=== PATIENT | male | born 1955 | race Caucasian/White ===

== ENCOUNTER 2019-12-26 01:16 | Inpatient (IN) | payer MEDICAID ==
[~2019-12-26] VITALS: Ht 175.3 cm; Wt 104.3 kg
[~2019-12-26 01:16] MED LIST: LISI40TA11 PO; SIMV-13 PO; TAMS0.4C36 PO
[2019-12-26 02:27] LABS: Alanine Aminotransferase 30 U/L (16-61); Albumin 3.7 g/dL (3.4-5.0); Anion Gap 4 (5-15); Aspartate Aminotransferase 18 U/L (15-37); BUN/Creatinine Ratio 17.8; Blood Urea Nitrogen 19 mg/dL (7-18); Calcium 8.3 mg/dL (8.5-10.1); Carbon Dioxide 29 mmol/L (21-32); Chloride 105 mmol/L (98-107); GFR African American 90 mL/min; GFR Non-African American 74 mL/min; Glucose 129 mg/dL (74-106); Potassium 3.9 mmol/L (3.5-5.1); Sodium 138 mmol/L (136-145)
[2019-12-26 02:32] LABS: Alkaline Phosphatase 75 U/L (45-117); Total Protein 7.1 g/dL (6.4-8.2)
[2019-12-26 02:41] LABS: Basophils # (auto) 0 10 ^3/uL (0-0.2); Basophils % (auto) 0.4 % (0.0-2.0); Eosinophils # (auto) 0.1 10 ^3/uL (0-0.8); Eosinophils % (auto) 2.6 % (0.0-7.0); Hematocrit 42.2 % (41.0-53.0); Hemoglobin 14.5 g/dL (13.5-17.5); Lymphocytes # (auto) 1.4 10 ^3/uL (0.4-5.4); Lymphocytes % (auto) 25.2 % (10.0-50.0); Mean Corpuscular Hemoglobin 30.6 pg (28.0-32.0); Mean Corpuscular Hgb Conc. 34.4 g/dL (32.0-36.0); Mean Corpuscular Volume 89.1 fL (80.0-100.0); Monocytes # (auto) 0.4 10 ^3/uL (0-1.3); Monocytes % (auto) 6.2 % (0.0-12.0); Neutrophils # (auto) 3.7 10 ^3/uL (1.6-8.6); Neutrophils % (auto) 65.6 % (37.0-80.0); Nucleated Red Blood Cells % 0.1 %; Platelet Count (auto) 174 10^3/uL (140-450); Red Blood Cells 4.74 10^6/uL (4.5-5.90); Red Cell Distribution Width 13.9 % (11.8-14.3); White Blood Cell 5.7 10^3/uL (4.4-10.8)
[2019-12-26] MEDS ORDERED: ONDANSETRON HCL 4 MG/2 ML VIAL IV PRN (04:00)
[2019-12-26] MEDS: InsuLIN REG 1unit/0.01ml Soln (100units/ml) SC SCH ×3 (04:00→12:45)
[2019-12-26] MEDS ORDERED: ACETAMINOPHEN 325 MG TAB PO PRN (04:00)
[2019-12-26] MEDS ORDERED: DOCUSATE SOD 100 MG CAP PO PRN (04:00)
[2019-12-26] MEDS ORDERED: MORPHINE SULF INJ 2 MG/ML SYRINGE 1ML IV PRN (04:00)
[2019-12-26] MEDS ORDERED: HYDROcodone-ACET 5/325MG TAB PO PRN (04:00)
[2019-12-26] MEDS ORDERED: DEXTROSE (50%) 50ML SYRG IV PRN (04:00)
[2019-12-26] MEDS: ACCU-CHEK COMFORT CURVE STRIP VI SCH ×3 (04:16→12:45)
[2019-12-26 07:18] LABS: Basophils # (auto) 0 10 ^3/uL (0-0.2); Basophils % (auto) 0.4 % (0.0-2.0); Eosinophils # (auto) 0.2 10 ^3/uL (0-0.8); Eosinophils % (auto) 3.7 % (0.0-7.0); Hematocrit 40.9 % (41.0-53.0); Hemoglobin 14.2 g/dL (13.5-17.5); Lymphocytes # (auto) 1.5 10 ^3/uL (0.4-5.4); Lymphocytes % (auto) 26.1 % (10.0-50.0); Mean Corpuscular Hemoglobin 30.7 pg (28.0-32.0); Mean Corpuscular Hgb Conc. 34.6 g/dL (32.0-36.0); Mean Corpuscular Volume 88.5 fL (80.0-100.0); Monocytes # (auto) 0.5 10 ^3/uL (0-1.3); Monocytes % (auto) 8.6 % (0.0-12.0); Neutrophils # (auto) 3.6 10 ^3/uL (1.6-8.6); Neutrophils % (auto) 61.2 % (37.0-80.0); Nucleated Red Blood Cells % 0.1 %; Platelet Count (auto) 165 10^3/uL (140-450); Red Blood Cells 4.62 10^6/uL (4.5-5.90); Red Cell Distribution Width 13.6 % (11.8-14.3); White Blood Cell 5.9 10^3/uL (4.4-10.8)
[2019-12-26 07:32] LABS: Calcium 8.4 mg/dL (8.5-10.1); Potassium 3.7 mmol/L (3.5-5.1)
[2019-12-26 07:37] LABS: BUN/Creatinine Ratio 18.9
[2019-12-26] MEDS ORDERED: ASPI-498 PO (10:40)
[2019-12-26] MEDS ORDERED: FINA5TAB4 PO (10:42)
[2019-12-26 16:07] VITALS: BP 108/58
[2019-12-26 18:02] LABS: Alcohol, Urine < 3.0 mg/dL (0-10); Amphetamine Screen, Urine POSITIVE (NEGATIVE); Barbiturate Scree,Urine NEGATIVE (NEGATIVE); Benzodiazephine Screen, Urine NEGATIVE (NEGATIVE); Cannabinoid Screen, Urine NEGATIVE (NEGATIVE); Cocaine Screen, Urine NEGATIVE (NEGATIVE); Opiate Scree,Urine NEGATIVE (NEGATIVE); Phencyclidine Screen, Urine NEGATIVE (NEGATIVE); Urine Bacteria NONE SEEN /hpf (None Seen); Urine Blood Negative /uL (Negative); Urine Specific Gravity 1.019 (1.001-1.035); Urine WBC 4 /hpf (0 - 3)
[2019-12-26] MEDS ORDERED: CIPR500T4 PO (18:28)
== END 2019-12-26 16:45 | disposition home health service (06) | DRG 463 ==
LOC: ER 01:18 → OVERFLOW 01:19
PROVIDERS: ADMIT Hospitalist; ATTEND Internal Medicine
DX: N39.0 Urinary tract infection, site not specified (principal); R73.9 Hyperglycemia, unspecified; R53.1 Weakness; R55 Syncope and collapse; E78.5 Hyperlipidemia, unspecified; N40.0 Benign prostatic hyperplasia without lower urinary tract symptoms; I11.0 Hypertensive heart disease with heart failure; W18.30XA Fall on same level, unspecified, initial encounter; I95.9 Hypotension, unspecified; Y93.89 Activity, other specified; Z86.73 Personal history of transient ischemic attack (TIA), and cerebral infarction without residual deficits; Z90.49 Acquired absence of other specified parts of digestive tract; Y92.89 Other specified places as the place of occurrence of the external cause; Y99.8 Other external cause status; I50.30 Unspecified diastolic (congestive) heart failure
CPT/HCPCS: 36415; 71045; 80048; 80053; 80061; 80307; 81001; 82962; 83036; 83605; 83880; 84484; 85025; 87040; 87086; 93005; G0378

== ENCOUNTER 2021-12-19 06:25 | Day surgery (SDC) | payer OTHER, MEDICAID ==
[~2021-12-19] VITALS: Ht 175.3 cm; Wt 104.3 kg
[~2021-12-19 06:25] MED LIST changes: +ASPI-498 PO; +LISI20TA28 PO; -LISI40TA11 PO
[2021-12-19] MEDS ORDERED: CIPROFLOXACIN 400MG/200ML 200 ML IV ONE (06:58)
[2021-12-19] MEDS ORDERED: fentaNYL CITRATE 100 MCG/2 ML VL ONE (07:33)
[2021-12-19] MEDS ORDERED: MIDAZOLAM HCL 2MG/2ML 2ml VIAL (1mg/ml) ONE (07:34)
[2021-12-19] MEDS ORDERED: PROPOFOL 10 MG/ML 20 ML IV ONE (07:53)
[2021-12-19] MEDS ORDERED: DexAMETHasone SOD PHOS 10MG/1ML VIAL INJ ONE (07:53)
[2021-12-19] MEDS ORDERED: MIDAZOLAM HCL 2MG/2ML 2ml VIAL (1mg/ml) IV PRN (08:15)
[2021-12-19] MEDS ORDERED: LABETALOL HCL 5 MG/ML 4ML SYRINGE IV PRN (08:15)
[2021-12-19] MEDS ORDERED: ONDANSETRON HCL 4 MG/2 ML VIAL IV PRN (08:15)
[2021-12-19] MEDS ORDERED: METOCLOPRAMIDE HCL 5MG/ml INJ 2ml VIAL IV PRN (08:15)
[2021-12-19] MEDS ORDERED: ePHEDrine SULFATE 50 MG/ML AMP IV PRN (08:15)
[2021-12-19] MEDS ORDERED: MORPHINE SULFATE 4 MG/ML SYR/VIAL IV PRN (08:15)
[2021-12-19 09:04] VITALS: BP 110/68
== END 2021-12-19 09:20 | disposition home or self-care (01) ==
LOC: SUR 06:25
PROVIDERS: ATTEND Urology
DX: R97.21 Rising PSA following treatment for malignant neoplasm of prostate (principal); C61 Malignant neoplasm of prostate; I11.0 Hypertensive heart disease with heart failure; I50.9 Heart failure, unspecified; I25.10 Atherosclerotic heart disease of native coronary artery without angina pectoris; Z86.73 Personal history of transient ischemic attack (TIA), and cerebral infarction without residual deficits; Z90.49 Acquired absence of other specified parts of digestive tract; Z20.822 Contact with and (suspected) exposure to COVID-19; Z82.49 Family history of ischemic heart disease and other diseases of the circulatory system
CPT/HCPCS: 55706; 88305; J0744; J1100; J2250; J2704; J3010; U0003; 76872

== ENCOUNTER 2022-08-04 12:35 | Emergency (ER) | payer OTHER, MEDICAID ==
[~2022-08-04] VITALS: Ht 175.3 cm; Wt 108.0 kg
[2022-08-04 15:25] VITALS: BP 152/78
[2022-08-04] MEDS ORDERED: IBUP800T26 PO (15:58)
[2022-08-04] MEDS ORDERED: HYDR-4902 PO (15:58)
[2022-08-04] MEDS ORDERED: AMOX-277 PO (15:58)
== END 2022-08-04 16:02 | disposition home or self-care (01) ==
LOC: ER 12:35
DX: S61.511A Laceration without foreign body of right wrist, initial encounter (principal); S61.531A Puncture wound without foreign body of right wrist, initial encounter; I11.0 Hypertensive heart disease with heart failure; I50.9 Heart failure, unspecified; Z79.82 Long term (current) use of aspirin; Z79.899 Other long term (current) drug therapy; Z86.73 Personal history of transient ischemic attack (TIA), and cerebral infarction without residual deficits; Z90.49 Acquired absence of other specified parts of digestive tract; W54.0XXA Bitten by dog, initial encounter; Y93.89 Activity, other specified; Y92.89 Other specified places as the place of occurrence of the external cause; Y99.8 Other external cause status
CPT/HCPCS: 12002

== ENCOUNTER 2022-08-06 01:41 | Emergency (ER) | payer OTHER, MEDICAID ==
[~2022-08-06] VITALS: Ht 175.3 cm; Wt 109.2 kg
[~2022-08-06 01:41] MED LIST changes: +AMOX-277 PO; +HYDR-4902 PO; +IBUP800T26 PO
[2022-08-06] MEDS ORDERED: cefTRIAXone 1GM/50ML D5W 50 ML IV ONE (05:00)
[2022-08-06] MEDS ORDERED: CLINDAMYCIN 900MG IV 50 ML IV ONE (05:00)
[2022-08-06] MEDS ORDERED: CLIN300C8 PO (05:54)
[2022-08-06 07:51] VITALS: BP 118/64
== END 2022-08-06 07:59 | disposition home or self-care (01) ==
LOC: ER 01:41
DX: S51.851D Open bite of right forearm, subsequent encounter (principal); I11.0 Hypertensive heart disease with heart failure; I50.9 Heart failure, unspecified; Z86.73 Personal history of transient ischemic attack (TIA), and cerebral infarction without residual deficits; W54.0XXD Bitten by dog, subsequent encounter
CPT/HCPCS: 96365; 96368; 99284; J0696; J3490

== ENCOUNTER 2022-08-22 23:40 | Emergency (ER) | payer OTHER, MEDICAID ==
[~2022-08-22] VITALS: Ht 175.3 cm; Wt 107.0 kg
[~2022-08-22 23:40] MED LIST changes: +CLIN300C8 PO
[2022-08-23 02:47] VITALS: BP 150/65
[2022-08-23] MEDS ORDERED: CLIN300C8 PO (02:48)
== END 2022-08-23 02:56 | disposition home or self-care (01) ==
LOC: ER 23:40
DX: S51.851D Open bite of right forearm, subsequent encounter (principal); I11.0 Hypertensive heart disease with heart failure; I50.9 Heart failure, unspecified; Z86.73 Personal history of transient ischemic attack (TIA), and cerebral infarction without residual deficits; W54.0XXD Bitten by dog, subsequent encounter

== ENCOUNTER 2024-12-03 00:44 | Emergency (ER) | payer OTHER, MEDICAID ==
[~2024-12-03] VITALS: Ht 175.3 cm; Wt 88.2 kg
[~2024-12-03 00:44] MED LIST changes: -AMOX-277 PO; +AMOX875T4 PO; +CLIN1CAP70 PO; -CLIN300C8 PO; +IBUP-1455 PO; -IBUP800T26 PO; -LISI20TA28 PO; +LISI20TA56 PO; -SIMV-13 PO; +SIMV40TA18 PO; -TAMS0.4C36 PO; +TAMS0.4C39 PO
--- NOTE | 2024-12-03 01:39 | ED.PDOC ---
GI ASSESSMENT HPI Comments 69 year old male with a Hx of CVA, CHF, Hyperlipidemia, HTN, Prostate Cancer, and a Pacemaker presents to the ED for the c/c of N/V/D w/ associated Bilateral Ear pain, Fever, Nasal Congestion, and Dysuria. Pt states that his symptoms started 2x days ago, and has not found any alleviating factors. Pt denies any ear discharge, Chest pain, sob, WRAY, Dizziness, Blurry Vision, or any other associated symptoms or modifiers at this time. Chief Complaint: Nausea/Vomiting Time Seen by MD: 01:35 Primary Care Provider: Zuleima Reviewed Notes: Nurses Notes, Medications, Allergies Allergies: Coded Allergies: NO KNOWN ALLERGIES (Unverified , 12/20/14) Home Meds Active Scripts Clindamycin Hcl (Clindamycin Hcl) 300 Mg Cap, 1 CAP PO TID for 7 Days, #21 CAP 0 Refills Prov:JUAN MYERS 08/23/22 Clindamycin Hcl (Clindamycin Hcl) 300 Mg Cap, 1 CAP PO TID for 7 Days, #21 CAP 0 Refills Prov:MOON DEL TORO 08/06/22 Hydrocodone-Acetaminophen (Hydrocodone Bitartrate/AC 5-325 mg) 1 Tab Tab, 1 TAB PO Q6HP PRN, #10 TAB Prov:BILLY HAAS 08/04/22 Ibuprofen Micronized (Ibuprofen) 800 Mg Tab, 800 MG PO Q8HP PRN, #30 TAB Prov:BILLY HAAS 08/04/22 Amoxicillin & Pot Clavulanate (Amoxicillin/Potassium Cla) 875 Mg Tab, 1 TAB PO BID for 10 Days, #20 TAB Prov:BILLY HAAS 08/04/22 Reported Medications Lisinopril (Lisinopril) 20 Mg Tab, 20 MG PO, TAB 12/18/21 Aspirin (ASPIRIN 81) 81 Mg Tab, 81 MG PO DAILY, TAB 12/26/19 Simvastatin (Simvastatin) 40 Mg Tab, 1 TAB PO QPM, #30 TAB 5 Refills 01/24/16 Tamsulosin Hcl (Tamsulosin Hcl) 0.4 Mg Cap, 1 CAP PO DAILY, #30 CAP 5 Refills 01/24/16 Information Source: Patient Mode of Arrival: Wheelchair Timing: Days Duration: Intermittent, Days Prehospital treatment: None Quality: Aching Vomitus: Watery Stool: Loose Severity: Moderate Recent: None Recent Hx of: None Pain Location: None Modifying Factors: Exertion, Movement Associated sign and symptoms: Nausea, Vomiting, Diarrhea, Abdominal Pain Past Medical History PAST MEDICAL HISTORY: Cancer, CHF, CVA, High Lipids, HTN Surgical History: Appendectomy, Pacemaker Family History Family History: Unknown Social History Smoker: Non-Smoker Alcohol: Denies ETOH Use Drugs: Denies Drug Use Lives In: Home All Other Systems: Reviewed and Negative (Comprehensive systems review obtained and negative except for what is stated in the HPI.) Physical Exam General Appearance: No Apparent Distress, Obese HEENT: Other (Pupils and face symmetric. Moist mucous membranes. Bilateral TMs cloudy) Neck: Full Range of Motion, Normal Inspection Respiratory: Decreased Breath Sounds, No Accessory Muscle Use, No Respiratory Distress Cardiovascular: No Edema, No JVD, Tachycardia Breast Exam: Deferred Gastrointestinal: Soft, Suprapubic, Tenderness Genitalia: Deferred Pelvic: Deferred Rectal: Deferred Extremities: Normal inspection, Normal range of motion, Non-tender Neurologic: Alert (Oriented x4), Normal Affect, Normal Mood Cerebellar Function: NOT DONE Reflexes: NOT DONE Skin: Dry, Normal Color, Warm Lymphatic: NOT DONE EKG EKG : Comments Sinus tach, rate 106, normal intervals, normal axis, normal QRS, nonspecific T change. Was a procedure done? Was a procedure done?: No GI differential Dx Differential Diagnosis: Bowel Obstruction, Constipation, Diverticular disease, Gastritis/PUD, Gastroenteritis, Urinary Obstruction, UTI, Dehydration, Drug toxicity, Electrolyte Imbalance, Viral, Kidney Stone, Other (Otitis media, otitis externa) X-Ray, Labs, Meds, VS Vital Signs Date Time Temp Pulse Resp B/P (MAP) Pulse Ox O2 Delivery O2 Flow Rate FiO2 12/03/24 05:31 98.4 113 18 121/59 (79) 93 98.4 12/03/24 05:19 113 19 121/59 12/03/24 04:23 139 18 117/66 12/03/24 04:15 100.0 139 18 117/66 (83) 93 100.0 12/03/24 04:15 Room Air* 0 21 12/03/24 00:46 98.7 124 18 144/68 94 98.7 Lab Test 12/03/24 04:36 12/03/24 03:47 12/03/24 02:00 12/03/24 01:31 Range/Units Influenza Type A Antigen Negative Negative Influenza Type B Antigen Negative Negative SARS-CoV-2 Antigen (Rapid) Negative NEGATIVE Troponin I High Sensitivity 7 4 </=54 ng/L White Blood Count 5.6 4.4-10.8 10^3/uL Red Blood Count 4.46 L 4.5-5.90 10^6/uL Hemoglobin 13.6 13.5-17.5 g/dL Hematocrit 38.1 L 41.0-53.0 % Mean Corpuscular Volume 85.5 80.0-100.0 fL Mean Corpuscular Hemoglobin 30.5 28.0-32.0 pg Mean Corpuscular Hemoglobin Concent 35.7 32.0-36.0 g/dL Red Cell Distribution Width 14.0 11.8-14.3 % Platelet Count 135 L 140-450 10^3/uL Mean Platelet Volume 9.1 6.9-10.8 fL Neutrophils (%) (Auto) 73.7 37.0-80.0 % Lymphocytes (%) (Auto) 13.4 10.0-50.0 % Monocytes (%) (Auto) 11.4 0.0-12.0 % Eosinophils (%) (Auto) 0.9 0.0-7.0 % Basophils (%) (Auto) 0.6 0.0-2.0 % Neutrophils # (Auto) 4.2 1.6-8.6 10 ^3/uL Lymphocytes # (Auto) 0.8 0.4-5.4 10 ^3/uL Monocytes # (Auto) 0.6 0-1.3 10 ^3/uL Eosinophils # (Auto) 0 0-0.8 10 ^3/uL Basophils # (Auto) 0 0-0.2 10 ^3/uL Nucleated Red Blood Cells 0.0 % Sodium Level 129 L 136-145 mmol/L Potassium Level 4.1 3.5-5.1 mmol/L Chloride Level 97 L 98-107 mmol/L Carbon Dioxide Level 23 20-31 mmol/L Anion Gap 9 5-15 Blood Urea Nitrogen 23 9-23 mg/dL Creatinine 0.99 0.700-1.30 mg/dL Glomerular Filtration Rate Calc 83 >90 mL/min BUN/Creatinine Ratio 23.2 H 10.0-20.0 Serum Glucose 143 H 74-106 mg/dL Lactic Acid Level 1.0 0.4-2.0 mmol/L Calcium Level 8.6 L 8.7-10.4 mg/dL B-Type Natriuretic Peptide 9.97 0-100 pg/mL Urine Color Yellow Yellow Urine Clarity Clear Clear Urine pH 5.5 5.0-9.0 Urine Specific [place] 1.025 1.001-1.035 Urine Protein Trace H Negative Urine Ketones Trace Negative Urine Blood Negative Negative /uL Urine Nitrite Negative Negative Urine Bilirubin Negative Negative Urine Urobilinogen 2 H Negative mg/dL Urine Leukocyte Esterase Negative Negative /uL Urine RBC 1 0 - 3 /hpf Urine Microscopic WBC 1 0-3 /HPF Urine Squamous Epithelial Cells Few <5 /hpf Urine Bacteria None seen None Seen /hpf Urine Mucus Few None Seen Urine Glucose Trace Normal mg/dL Test 12/03/24 01:04 Range/Units POC Glucose 154 H 70-106 mg/dl Current Medications Medications (Trade) Dose Ordered Sig/Manuel Route Start Time Stop Time Status Last Admin Ceftriaxone Sodium/Dextrose 50 ml @ 50 mls/hr ONCE ONCE IV 12/03/24 01:45 12/03/24 02:44 DC 12/03/24 04:23 Ondansetron HCl (Zofran) 4 mg ONCE ONCE IV 12/03/24 01:45 12/03/24 01:46 DC 12/03/24 04:23 Morphine Sulfate 4 mg ONCE ONCE IV 12/03/24 01:45 12/03/24 01:46 DC 12/03/24 04:23 Sodium Chloride 1,000 ml @ 200 mls/hr Q5H ONCE IV 12/03/24 03:45 12/03/24 08:44 12/03/24 04:23 PATIENT: DINA FAYE ACCT: [id number] UNIT: [id number] : 1955 LOC: ER ROOM / BED: / AGE / SEX: 69 / M ADM STATUS: REG ER SERVICE 0140 ORDERING PHYSICIAN: CAIO TERRELL MD PROCEDURE(s): CXRP - CHEST PORTABLE REASON: sob ORDER NUMBER(s): [id number], ACCESSION NUMBER(s): [id number] CHEST RADIOGRAPH Indication: sob Technique: Single frontal view of the chest was obtained Comparison: CHEST PORTABLE on DOS: 12/26/19 FINDINGS: Lines and Tubes: None Lungs: No focal consolidation. Linear opacities in the lower lungs most likely represent atelectasis, less likely edema. Pleura: No effusion or pneumothorax. Cardiomediastinal contours: Unremarkable Bones: No acute osseous abnormality. IMPRESSION: 1. Mild basilar atelectasis versus edema. X-Ray, Labs, Meds, VS Comment 69 year old male with a Hx of CVA, CHF, Hyperlipidemia, HTN, Prostate Cancer, and a Pacemaker presents to the ED for the c/c of N/V/D w/ associated Bilateral Ear pain, Fever, Nasal Congestion, and Dysuria Vitals remarkable for heart rate 139 Exam remarkable for tachycardia and bilateral cloudy TMs Rhythm strip independently interpreted by me: Sinus tach, rate 106, no ectopy. Chest x-ray IMPRESSION: 1. Mild basilar atelectasis versus edema. CBC unremarkable, basic metabolic panel remarkable for sodium 129, chloride 97. BNP, serial troponins, lactate and UA unremarkable. Influenza and COVID negative. Patient treated with the following in the ED: Morphine 4 mg IV, Zofran 4 mg IV, 1 L 0.9 normal saline IV, Rocephin 2 g IV On re-evaluation, heart rate has improved, however patient is still tachycardic in the low 100s. Vitals are otherwise stable. He is not in respiratory distress. Plan was to admit the patient for electrolyte correction and further evaluation of his tachycardia. Case was discussed with RODOLFO Worthy, who evaluated the patient in the ED. Patient admitted that he had smoked meth prior to coming to the ER. Deacon did not feel the patient required hospitalization, and recommended the patient be discharged. He will arrange for close outpatient follow-up. Rx cefuroxime, Zofran, ibuprofen, Tylenol Time of 1ST Reevaluation: 02:10 Reevaluation 1ST: Unchanged Patient Education/Counseling: Diagnosis, Treatment, Need For Follow Up Family Education/Counseling: No Family Present SEPSIS Sepsis Screen Date sepsis recognized/suspect: Dec 03, 2024 Time Sepsis recognized/suspect: 51 Recent Procedure: No On Antibiotic Therapy: No Respiratory Rate >20: No Heart Rate >90: Yes (HR-124) Temp<36 C (96.8 F) or >38.3 C: No SBP <90 or MAP <65 mmHG: No New Acute Mental Status Change: No Is the patient on CPAP, BIPAP,: No SEPSIS EXCLUSION NOTE: Sepsis Exclusion Note: Patient presents with SIRS criteria, but the SIRS response is attributed to [methamphetamine use ], not sepsis. Sepsis bundle is not initiated at this time, due to this reason. Further management will focus on the treatment of the above condition (s). Physician Orders Chest Portable (12/03/24 01:40) Troponin-I Hs (12/03/24 04:40) Blood Culture (12/03/24 01:40) Sodium Chloride 0.9% (12/03/24 03:45) Lactic Acid W/ Reflex Order (12/03/24 04:42) Blood Culture (12/03/24 04:42) Po Trial (12/03/24 ) Vital Signs Date Time Temp Pulse Resp B/P (MAP) Pulse Ox O2 Delivery O2 Flow Rate FiO2 12/03/24 05:31 98.4 113 18 121/59 (79) 93 98.4 12/03/24 05:19 113 19 121/59 12/03/24 04:23 139 18 117/66 12/03/24 04:15 100.0 139 18 117/66 (83) 93 100.0 12/03/24 04:15 Room Air* 0 21 12/03/24 00:46 98.7 124 18 144/68 94 98.7 Laboratory Tests Test 12/03/24 02:00 Lactic Acid Level 1.0 mmol/L (0.4-2.0) White Blood Count 5.6 10^3/uL (4.4-10.8) Medications Medications Dose Ordered Sig/Manuel Route Start Time Stop Time Status Last Admin Dose Admin Ceftriaxone Sodium/Dextrose 50 ml @ 50 mls/hr ONCE ONCE IV 12/03/24 01:45 12/03/24 02:44 DC 12/03/24 04:23 Morphine Sulfate 4 mg ONCE ONCE IV 12/03/24 01:45 12/03/24 01:46 DC 12/03/24 04:23 Ondansetron HCl 4 mg ONCE ONCE IV 12/03/24 01:45 12/03/24 01:46 DC 12/03/24 04:23 Sodium Chloride 1,000 ml @ 200 mls/hr Q5H ONCE IV 12/03/24 03:45 12/03/24 08:44 12/03/24 04:23 Departure 1 Departure Time of Disposition: 06:00 Impression: Primary Impression: Otitis media Qualified Codes: H66.90 - Otitis media, unspecified, unspecified ear Additional Impressions: Methamphetamine abuse Electrolyte imbalance Disposition: HOME / SELF CARE / HOMELESS Condition: Stable Additional Instructions: Your blood tests showed a low sodium and chloride. We have corrected this in the ER. I have prescribed antibiotics for your ear infection, pain and nausea medication. Follow-up with your primary doctor in 1-2 days. Return to ER for persistent or worsening symptoms. e-Prescriptions Ibuprofen Micronized (Ibuprofen) 800 Mg Tab 800 MG PO Q8HP PRN, #30 TAB Prn fever or pain. Take with food. Prov: CAIO TERRELL MD 12/03/24 Acetaminophen (Tylenol Extra Strength) 500 Mg Tab 1000 MG PO Q6HP PRN, #30 TAB Prn fever or pain Prov: CAIO TERRELL MD 12/03/24 Ondansetron Odt 4MG Tab (ZOFRAN PO) 4 Mg Tb 4 MG PO TID PRN, #30 TAB Prn nausea/vomiting ODT TAB-DISSOLVE IN MOUTH, THEN SWALLOW Prov: CAIO TERRELL MD 12/03/24 Cefuroxime Axetil (Cefuroxime Axetil) 500 Mg Tab 1 TAB PO BID for 10 Days, #20 TAB Prov: CAIO TERRELL MD 12/03/24 Discharged With: Relative Critical Care Note Critical Care Time?: No Stability Stability form required: No Heart Score Heart Score: Heart Score Response (Comments) Value History N/A 0 EKG N/A 0 Age N/A 0 Risk Factors N/A 0 Troponin N/A 0 Total 0 I personally scribed for CAIO TERRELL MD ([email or web address]) on 12/03/24 at 01:39. Electronically submitted by Dontae Masters ([email or web address]). I personally scribed for CAIO TERRELL [email or web address]) on 12/03/24 at 01:44. Electronically submitted by Dontae Masters ([email or web address]). I personally scribed for CAIO TERRELL MD ([email or web address]) on 12/03/24 at 02:46. Electronically submitted by Dontae Masters ([email or web address]). CAIO TERRELL MD Dec 03, 2024 01:39
[2024-12-03 02:27] LABS: Hematocrit 38.1 % (41.0-53.0); Hemoglobin 13.6 g/dL (13.5-17.5); Mean Corpuscular Hemoglobin 30.5 pg (28.0-32.0); Mean Corpuscular Volume 85.5 fL (80.0-100.0); Nucleated Red Blood Cells % 0.0 %
[2024-12-03 02:29] LABS: Potassium 4.1 mmol/L (3.5-5.1)
[2024-12-03 02:30] LABS: Anion Gap 9 (5-15); Carbon Dioxide 23 mmol/L (20-31)
--- NOTE | 2024-12-03 02:31 | DVH ---
CHEST RADIOGRAPH Indication: sob Technique: Single frontal view of the chest was obtained Comparison: CHEST PORTABLE on DOS: 12/26/19 FINDINGS: Lines and Tubes: None Lungs: No focal consolidation. Linear opacities in the lower lungs most likely represent atelectasis, less likely edema. Pleura: No effusion or pneumothorax. Cardiomediastinal contours: Unremarkable Bones: No acute osseous abnormality. IMPRESSION: 1. Mild basilar atelectasis versus edema.
[2024-12-03 02:33] LABS: Calcium 8.6 mg/dL (8.7-10.4); Chloride 97 mmol/L (98-107); Sodium 129 mmol/L (136-145)
[2024-12-03 02:35] LABS: BUN/Creatinine Ratio 23.2 (10.0-20.0); Blood Urea Nitrogen 23 mg/dL (9-23)
[2024-12-03 02:36] LABS: Glucose 143 mg/dL (74-106)
[2024-12-03 04:00] LABS: Urine Protein, UAD TRACE (Negative)
[2024-12-03] MEDS: cefTRIAXone 2GM/50ML D5W 50 ML IV ONE (04:23)
[2024-12-03] MEDS: MORPHINE SULFATE 4 MG/ML SYR/VIAL IV ONE (04:23)
[2024-12-03] MEDS: SODIUM CHLORIDE 0.9% 1,000 ML IV ONE (04:23)
[2024-12-03] MEDS: ONDANSETRON HCL 4 MG/2 ML VIAL IV ONE (04:23)
[2024-12-03 05:26] LABS: COVID19 ANTIGEN SOFIA FIA NEGATIVE (NEGATIVE)
[2024-12-03 05:31] VITALS: BP 121/59; RESP 18; TEMP 98.4; O2SAT 93
[2024-12-03 05:32] VITALS: PULSE 106
--- NOTE | 2024-12-03 05:35 | ECG ---
[facility] Test Date: 2024-12-03 Test Time: 05:32:54 Pat Name: DINA FAYE Department: ER Room: Gender: M [employer]: : 1955 Requested By: CAIO PARKER Order Number: [id number] Reading MD: Rg Walls Measurements Intervals [place] Rate: 106 P: 22 VT: 158 QRS: 62 QRSD: 89 T: 55 QT: 301 QTc: 400 Interpretive Statements Sinus tachycardia Low voltage, extremity leads Minimal ST elevation, inferior leads Baseline wander in lead(s) V2 Electronically Signed On 12-05-2024 22:04:13 PDT by Rg Walls Please click the below link to view image of tracing.
--- NOTE | 2024-12-03 05:51 | DVHINCON2 ---
Date of service: Dec 03, [address] Alex Reason for Consultation Medical management History of Present Illness 69-year-old male with past medical history of CHF, CVA, prostate cancer presents with complaints of bilateral earaches, nausea, vomiting, diarrhea x3 days. Nila cool endorses he has recently been experiencing fever, cough and congestion. While the patient was in the emergency department's he was noted to have an elevated heart rate 139. As such, the patient endorses smoking a bowl of methamphetamines prior to going to the emergency department. Heart rate did improve after receiving 1 L normal saline in the emergency department. At this time the patient denies dizziness, shortness of breath, chest pain, palpitations, abdominal pain, hematemesis, hematochezia, melena, leg swelling. Family History: Patient reports no known family medical history. Social History Methamphetamine use Allergies: Coded Allergies: NO KNOWN ALLERGIES (Unverified , 12/20/14) Home Meds Active Scripts Ibuprofen Micronized (Ibuprofen) 800 Mg Tab, 800 MG PO Q8HP PRN, #30 TAB Prn fever or pain. Take with food. Prov:CAIO TERRELL MD 12/03/24 Acetaminophen (Tylenol Extra Strength) 500 Mg Tab, 1000 MG PO Q6HP PRN, #30 TAB Prn fever or pain Prov:CAIO TERRELL MD 12/03/24 Ondansetron Odt 4MG Tab (ZOFRAN PO) 4 Mg Tb, 4 MG PO TID PRN, #30 TAB Prn nausea/vomiting ODT TAB-DISSOLVE IN MOUTH, THEN SWALLOW Prov:CAIO TERRELL MD 12/03/24 Cefuroxime Axetil (Cefuroxime Axetil) 500 Mg Tab, 1 TAB PO BID for 10 Days, #20 TAB Prov:CAIO TERRELL MD 12/03/24 Clindamycin Hcl (Clindamycin Hcl) 300 Mg Cap, 1 CAP PO TID for 7 Days, #21 CAP 0 Refills Prov:JUAN MYERS 08/23/22 Clindamycin Hcl (Clindamycin Hcl) 300 Mg Cap, 1 CAP PO TID for 7 Days, #21 CAP 0 Refills Prov:MOON DEL TORO 08/06/22 Hydrocodone-Acetaminophen (Hydrocodone Bitartrate/AC 5-325 mg) 1 Tab Tab, 1 TAB PO Q6HP PRN, #10 TAB Prov:BILLY HAAS PAC 08/04/22 Ibuprofen Micronized (Ibuprofen) 800 Mg Tab, 800 MG PO Q8HP PRN, #30 TAB Prov:BILLY HAAS PAC 08/04/22 Amoxicillin & Pot Clavulanate (Amoxicillin/Potassium Cla) 875 Mg Tab, 1 TAB PO BID for 10 Days, #20 TAB Prov:BILLY HAAS PAC 08/04/22 Reported Medications Lisinopril (Lisinopril) 20 Mg Tab, 20 MG PO, TAB 12/18/21 Aspirin (ASPIRIN 81) 81 Mg Tab, 81 MG PO DAILY, TAB 12/26/19 Simvastatin (Simvastatin) 40 Mg Tab, 1 TAB PO QPM, #30 TAB 5 Refills 01/24/16 Tamsulosin Hcl (Tamsulosin Hcl) 0.4 Mg Cap, 1 CAP PO DAILY, #30 CAP 5 Refills 01/24/16 Review of Systems Ten systems reviewed and negative except as per HPI Vital Signs Vital Signs Date Time Temp Pulse Resp B/P (MAP) Pulse Ox O2 Delivery O2 Flow Rate FiO2 12/03/24 05:32 106 12/03/24 05:31 98.4 18 121/59 (79) 93 98.4 12/03/24 04:15 Room Air* 0 21 Physical Exam GENERAL: Patient appearing stated age, in no acute distress. HEENT: Pupils equal and reactive to light and accommodation. Extraocular muscles intact. Mucous membranes moist. Conjunctivae pink. Anicteric sclerae. LUNGS: Bilateral air entry. No wheezes, rhonchi or rales. HEART: Regular rate and rhythm. Normal S1 and S2. ABDOMEN: BS normoactive, soft, nontender, and nondistended. No CVA tenderness. EXTREMITIES: No clubbing, cyanosis, edema. No calf tenderness. Pedal pulses 2+. NEUROLOGICAL: The patient is alert and oriented times 3. CN II-XII intact. No focal deficits on gross sensory or motor examination. Labs/Diagnostic Data Labs Test 12/03/24 04:36 12/03/24 03:47 12/03/24 02:00 12/03/24 01:31 Range/Units Influenza Type A Antigen Negative Negative Influenza Type B Antigen Negative Negative SARS-CoV-2 Antigen (Rapid) Negative NEGATIVE Troponin I High Sensitivity 7 </=54 ng/L White Blood Count 5.6 4.4-10.8 10^3/uL Red Blood Count 4.46 L 4.5-5.90 10^6/uL Hemoglobin 13.6 13.5-17.5 g/dL Hematocrit 38.1 L 41.0-53.0 % Mean Corpuscular Volume 85.5 80.0-100.0 fL Mean Corpuscular Hemoglobin 30.5 28.0-32.0 pg Mean Corpuscular Hemoglobin Concent 35.7 32.0-36.0 g/dL Red Cell Distribution Width 14.0 11.8-14.3 % Platelet Count 135 L 140-450 10^3/uL Mean Platelet Volume 9.1 6.9-10.8 fL Neutrophils (%) (Auto) 73.7 37.0-80.0 % Lymphocytes (%) (Auto) 13.4 10.0-50.0 % Monocytes (%) (Auto) 11.4 0.0-12.0 % Eosinophils (%) (Auto) 0.9 0.0-7.0 % Basophils (%) (Auto) 0.6 0.0-2.0 % Neutrophils # (Auto) 4.2 1.6-8.6 10 ^3/uL Lymphocytes # (Auto) 0.8 0.4-5.4 10 ^3/uL Monocytes # (Auto) 0.6 0-1.3 10 ^3/uL Eosinophils # (Auto) 0 0-0.8 10 ^3/uL Basophils # (Auto) 0 0-0.2 10 ^3/uL Nucleated Red Blood Cells 0.0 % Sodium Level 129 L 136-145 mmol/L Potassium Level 4.1 3.5-5.1 mmol/L Chloride Level 97 L 98-107 mmol/L Carbon Dioxide Level 23 20-31 mmol/L Anion Gap 9 5-15 Blood Urea Nitrogen 23 9-23 mg/dL Creatinine 0.99 0.700-1.30 mg/dL Glomerular Filtration Rate Calc 83 >90 mL/min BUN/Creatinine Ratio 23.2 H 10.0-20.0 Serum Glucose 143 H 74-106 mg/dL Lactic Acid Level 1.0 0.4-2.0 mmol/L Calcium Level 8.6 L 8.7-10.4 mg/dL B-Type Natriuretic Peptide 9.97 0-100 pg/mL Urine Color Yellow Yellow Urine Clarity Clear Clear Urine pH 5.5 5.0-9.0 Urine Specific [place] 1.025 1.001-1.035 Urine Protein Trace H Negative Urine Ketones Trace Negative Urine Blood Negative Negative /uL Urine Nitrite Negative Negative Urine Bilirubin Negative Negative Urine Urobilinogen 2 H Negative mg/dL Urine Leukocyte Esterase Negative Negative /uL Urine RBC 1 0 - 3 /hpf Urine Microscopic WBC 1 0-3 /HPF Urine Squamous Epithelial Cells Few <5 /hpf Urine Bacteria None seen None Seen /hpf Urine Mucus Few None Seen Urine Glucose Trace Normal mg/dL Test 12/03/24 01:04 Range/Units POC Glucose 154 H 70-106 mg/dl Assessment Tachycardia. Methamphetamine abuse. Flu like symptoms Viral syndrome Otitis media Patient was seen and evaluate ER bed one. The patient's chart was reviewed in it's entirety, including lab work, imaging, physical assessment. During the emergency department evaluation lab work is unremarkable: W 5.6, H&H 13.6/30.1, PLT 135, Na 129, K4.1, BUN 23, creatinine 0.99,, LA 1.0., Troponin 4/7, BNP 9.9., viral swabs for influenza, a, influenza B, Covid were all negative.UA negative. EKG completed sinus tachycardia 106. Chest x-ray was interpreted per the radiologist and reviewed by myself, impression, mild basilar atelectasis. Vital signs temperature 98.4, BP 121/59, HR 106, RR 18 BPM, Oxygen saturation 93% on room air. Patient is noted to be able to ambulate independently with steady gait. While the patient was in the emergency department. He was noted to have a heart rate 139 which improved after the receiving 1 L normal saline. Patient admitted to smoking a bowl of methamphetamines prior to going to the emergency department. I asked the emergency department to perform a PO challenge . In which the patient is able to tolerate oral intake without feeling nauseous or vomiting. Plan/Recommendation During my evaluation, I did veterans' counselor the patient on the cessation of methamphetamine use. Which he states that he understands. I discussed all the findings with the patient. At this time, considering that all findings are essentially benign and the patient's heart rate has improved to 105 we will discharge the patient home and follow up on outpatient basis. Plan was also discussed with the emergency department physician who agreed to send a prescription for oral antibiotics to the patient's pharmacy. O assistant case manager, Charline has been consulted to establish a home safety evaluation. Will also schedule outpatient follow up at [facility] urgent care for repeat lab work, including the CBC, BMP, and reevaluation of ear pain. Plan of care was discussed in detail with the patient who states that he understands and will follow up on outpatient basis. The patient was provided with strict ER precautions, including, but not limited to dizziness, syncope, fevers, chills, shortness of breath, chest, pain, nausea, vomiting, blood in emesis, blood in stool. If any of these occur, the patient has been instructed to return to the emergency department for further evaluation and treatment. Plan discussed with: Patient DENNIS RAPP NP Dec 03, 2024 05:51
[2024-12-03] MEDS ORDERED: ACET-1304 PO (06:05)
[2024-12-03] MEDS ORDERED: ZOFR4T PO (06:05)
[2024-12-03] MEDS ORDERED: IBUP-1455 PO (06:05)
[2024-12-03] MEDS ORDERED: CEFU500T43 PO (06:05)
== END 2024-12-03 06:11 | disposition home or self-care (01) ==
LOC: ER 00:44
DX: H66.93 Otitis media, unspecified, bilateral (principal); F15.10 Other stimulant abuse, uncomplicated; E87.8 Other disorders of electrolyte and fluid balance, not elsewhere classified; I11.0 Hypertensive heart disease with heart failure; I50.9 Heart failure, unspecified; E78.5 Hyperlipidemia, unspecified; Z85.9 Personal history of malignant neoplasm, unspecified; Z95.0 Presence of cardiac pacemaker; Z90.49 Acquired absence of other specified parts of digestive tract; Z79.82 Long term (current) use of aspirin; Z86.73 Personal history of transient ischemic attack (TIA), and cerebral infarction without residual deficits; Z79.899 Other long term (current) drug therapy; Z20.822 Contact with and (suspected) exposure to COVID-19
CPT/HCPCS: 36415; 71045; 80048; 81001; 82947; 83605; 83880; 84484; 85025; 87040; 87426; 87804; 93005; 96365; 96375; 99285; J0696; J2270; J2405; J7030; 82962